=== PATIENT | male | born 1960 | race Caucasian/White ===

== ENCOUNTER 2017-08-14 01:16 | Inpatient (IN) | payer SELFPAY ==
[~2017-08-14] VITALS: Ht 160 cm; Wt 67.0 kg
[2017-08-14 03:30] VITALS: BP 148/79; PULSE 56; RESP 18; TEMP 98.1; O2SAT 98
[2017-08-14] MEDS ORDERED: hydrOXYzine HCL 50 MG TAB PO PRN (05:00)
[2017-08-14] MEDS ORDERED: diphenhydrAMINE HCL 50 MG/ML VIAL IM PRN (05:00)
[2017-08-14] MEDS ORDERED: ALUMINUM/MAGNESIUM/SIMETH 30 ML CUP PO PRN (05:00)
[2017-08-14] MEDS ORDERED: diphenhydrAMINE HCL 50 MG CAP PO PRN (05:00)
[2017-08-14] MEDS ORDERED: diphenhydrAMINE HCL 50 MG/ML VIAL - HS PRN IM (05:00)
[2017-08-14] MEDS ORDERED: ACETAMINOPHEN 325 MG TAB PO PRN (05:00)
[2017-08-14] MEDS ORDERED: carBAMazepine 200 MG TAB PO ONE (05:00)
[2017-08-14] MEDS ORDERED: MAGNESIUM HYDROXIDE SUSP 30 ML CUP PO PRN (05:00)
[2017-08-14] MEDS ORDERED: diphenhydrAMINE HCL 50 MG CAP - HS PRN PO (05:00)
[2017-08-14] MEDS ORDERED: carBAMazepine 200 MG TAB PO SCH (09:00)
[2017-08-14] MEDS ORDERED: NICOTINE 21 MG/24 HR PATCH T-DERMAL SCH (09:00)
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
[2017-08-14] MEDS ORDERED: CARB200T PO (13:08)
[2017-08-14] MEDS ORDERED: REMOVE OLD NICOTINE PATCH T-DERMAL SCH (21:00)
== END 2017-08-14 18:50 | disposition home or self-care (01) | DRG 882 ==
LOC: H270 03:30
PROVIDERS: ADMIT Psychiatry & Neurology Psychiatry; ATTEND Psychiatry & Neurology Psychiatry
DX: F43.25 Adjustment disorder with mixed disturbance of emotions and conduct (principal); G40.909 Epilepsy, unspecified, not intractable, without status epilepticus; F19.10 Other psychoactive substance abuse, uncomplicated